=== PATIENT | female | born 1960 | race African-American/Black ===

== ENCOUNTER → 2016-08-11 | Outpatient (CLI) | payer OTHER ==
[~2016-08-11] MED LIST: ALBUTEROL17 GM INH; BACTRIM DS TABL1 TAB PO; BUMEX PO; CIPRO PO; DOXYCYCLINE150 MG PO; FLONASE 0.05% N16 G1; GLUCOTROL PO; HUMALOG MIX 75/10 ML SUBQ; KEFLEX PO; LORATADINE PO; LORTAB 5/500 TA1 TA2 PO; LORTAB 7.5-5001 TAB PO; LOTREL 10/20 MG1 CAP PO; METFORMIN PO; MONISTAT 11 EA TOP; NOVOLOG MIX 70/10 ML INJ; PERCOCET PO; PREDNISONE PO; PRILOSEC PO; VICODIN 5/500 T1 TAB PO; ZITHROMAX PO; ZYRTEC PO
--- NOTE | ~2016-08-11 | CR58 ---
[facility] A Service of [facility] RADIOLOGY TEXT RESULTS PATIENT: VERA RODRIGUES LOCATION: [facility] : 56 UNIT #: [id number] AGE: [address]: Edna Coleman MD SEX: F ORDER DR: [id number] [address] [address] [id number] O MR#: [id number] Acc #: [id number] NAME: VERA RODRIGUES : 1960 SEX: F STUDY DATE/TIME: 08/11/2016 12:07 UNIT: [facility] ROOM: STUDY DESCRIPTION: CR Cervical Spine 2 or 3 Views Attending Physician: Edna Coleman M.D. Referring Physician: Edna Coleman M.D. Ordering Physician: Edna Coleman M.D. Primary Care Physician: Carlos Perla M.D. MEDICAL IMAGING REPORT This report is preliminary unless electronic signature is present EXAM Cervical spine, lateral and flexion/extension views. DATE OF EXAM 08/11/2016 INDICATIONS 56-year-old female with pain and stiffness of neck for 1 month. COMPARISON STUDIES No comparisons. FINDINGS The neutral view demonstrates reversal of the usual cervical lordosis. Multilevel degenerative disc space narrowing greatest in the mid cervical spine. There is no dynamic instability on flexion/extension views. Multiple surgical clips in the neck. IMPRESSION Multilevel degenerative disc space narrowing. No dynamic instability. Dictated by... Erick Yang M.D. THIS IS AN ELECTRONICALLY VERIFIED REPORT Erick Yang M.D. at 08/11/2016 4:30 PM ALPESH/florencio TD: 08/11/2016 15:17 JOB #: [id number] MEDICAL IMAGING REPORT [facility] A Service [facility] RADIOLOGY TEXT RESULTS PATIENT: VERA RODRIGUES LOCATION: [facility] : 56 UNIT #: [id number] AGE: [address]: Edna Coleman MD SEX: F ORDER DR: Page 1 of 1 COPY
--- NOTE | ~2016-08-11 | CR230 ---
[facility] A Service of [facility] & [facility] RADIOLOGY TEXT RESULTS PATIENT: VERA RODRIGUES LOCATION: [facility] : 56 UNIT #: [id number] AGE: [address]: Edna Coleman MD SEX: F ORDER DR: [id number] [facility] [address] [place], [place] [address] [id number] O MR#: [id number] Acc #: [id number] NAME: VERA RODRIGUES : 1960 SEX: F STUDY DATE/TIME: 08/11/2016 12:07 UNIT: [facility] ROOM: STUDY DESCRIPTION: CR Shoulder Min 2 View Rt Attending Physician: Edna Coleman M.D. Referring Physician: Edna Coleman M.D. Ordering Physician: Edna Coleman M.D. Primary Care Physician: Carlos Perla M.D. MEDICAL IMAGING REPORT This report is preliminary unless electronic signature is present EXAM Right shoulder 2 views INDICATIONS Right shoulder pain for 1 month. No comparisons. FINDINGS There is no fracture or dislocation. Joint spaces are preserved. IMPRESSION Negative Dictated by... Erick Yang M.D. THIS IS AN ELECTRONICALLY VERIFIED REPORT Erick Yang M.D. at 08/11/2016 4:30 PM ALPEHS/ulises TD: 08/11/2016 15:14 JOB #: [id number] MEDICAL IMAGING REPORT Page 1 of 1 COPY
== END | disposition home or self-care (01) ==
LOC: CRAD 11:08
DX: M50.30 Other cervical disc degeneration, unspecified cervical region (principal); M25.511 Pain in right shoulder; M48.02 Spinal stenosis, cervical region
CPT/HCPCS: 72040; 73030

== ENCOUNTER 2016-11-04 23:34 | Emergency (ER) | payer OTHER | END 2016-11-05 01:45 | disposition home or self-care (01) | LOC: CED 23:34 | DX: R13.10 Dysphagia, unspecified (principal); R06.00 Dyspnea, unspecified; T39.395A Adverse effect of other nonsteroidal anti-inflammatory drugs [NSAID], initial encounter; I11.0 Hypertensive heart disease with heart failure; I50.9 Heart failure, unspecified; E11.9 Type 2 diabetes mellitus without complications; J44.9 Chronic obstructive pulmonary disease, unspecified; Z88.8 Allergy status to other drugs, medicaments and biological substances; Y92.9 Unspecified place or not applicable | CPT/HCPCS: 99285; J2930 ==